=== PATIENT | male | born 1995 | race African-American/Black ===

== ENCOUNTER 2017-11-17 07:45 | Emergency (ER) | payer OTHER ==
[2017-11-17] MEDS ORDERED: Ketorolac INJ* 30 MG/ML 1 ML VIAL IV PUSH ONE (08:43)
[2017-11-17] MEDS ORDERED: NS 0.9% 1000 ML* 1,000 ML IV ONE (08:43)
[2017-11-17 09:03] LABS: ABS Basophils 0 10^3/ul (0-0.2); ABS Eosinophils 0 10^3/ul (0-0.6); ABS Lymphocytes 0.4 10^3/ul (1.0-4.8); ABS Monocytes 0.5 10^3/ul (0-0.8); ABS Neutrophils 2.9 10^3/ul (1.5-7.7); ABS Nucleated RBC 0 10^3/ul; Eosinophil % 0.1 % (0-6); Hematocrit 41 % (42-52); Hemoglobin 13.9 g/dl (14.0-18.0); Mean Corpuscular HGB Conc 34 g/dl (31-36); Mean Corpuscular Hemoglobin 30 pg (27-31); Mean Corpuscular Volume 89 fL (80-94); Mean Platelet Volume 7.3 um3 (7.4-10.4); Nucleated Red Blood Cells % 0.1; Platelet Count 147 10^3/ul (150-450); Red Cell Distribution Width 13 % (10.5-15); White Blood Count 3.8 10^3/ul (3.5-10.8)
[2017-11-17 09:42] LABS: EGFR Non-African American 89.2 (>60)
[2017-11-17 09:58] VITALS: BP 119/66
--- NOTE | 2017-11-17 10:47 | ED ---
Luis Manuel Schroeder Stephanie, scribed for Twin Garsia MD on 11/17/17 at 0851 . Abdominal Pain/Male - HPI Summary HPI Summary: The pt is a 22 y/o M presenting to the ED with c/o abd pain that began earlier today. Symptoms include nausea, chills, myalgia and fever (100 F). The pt denies D/V, dysuria, SOB, CP and cough. - History of Current Complaint Chief Complaint: EDAbdPain Stated Complaint: GENERAL Time Seen by Provider: 11/17/17 08:36 Hx Obtained From: Patient Onset/Duration: Gradual Onset, Lasting Hours, Still Present Timing: Constant Severity Currently: Moderate Pain Intensity: 5 Pain Scale Used: 0-10 Numeric Location: Diffuse Radiates: No Aggravating Factor(s): Nothing Alleviating Factor(s): Nothing Associated Signs And Symptoms: Positive: Fever, Nausea. Negative: Urinary Symptoms, Vomiting, Diarrhea - Allergies/Home Medications Allergies/Adverse Reactions: Allergies Allergy/AdvReac Type Severity Reaction Status Date / Time No Known Allergies Allergy Verified 11/17/17 07:54 Home Medications: Home Medications Ibuprofen TAB* [Advil TAB*] 400 mg PO Q8H PRN 11/17/17 [History Confirmed ] Magnesium Oxide TAB* [MagOx 400 TAB*] 500 mg PO DAILY 11/17/17 [History Confirmed 11/17/17] Multivitamins/Minerals TAB* [Theragran/minerals TAB*] 1 tab PO DAILY 11/17/17 [ History Confirmed 11/17/17] PMH/Surg Hx/FS Hx/Imm Hx Endocrine/Hematology History: Denies: Hx Diabetes, Hx Thyroid Disease Cardiovascular History: Denies: Hx Hypercholesterolemia, Hx Hypertension, Hx Pacemaker/ICD, Hx Peripheral Vascular Disease Respiratory History: Reports: Hx Asthma Denies: Hx Chronic Obstructive Pulmonary Disease (COPD) GI History: Denies: Hx Ulcer History: Denies: Hx Renal Disease Musculoskeletal History: Denies: Hx Arthritis, Hx Osteoporosis Sensory History: Denies: Hx Cataracts, Hx Contacts or Glasses, Hx Glaucoma, Hx Hearing Aid Opthamlomology History: Denies: Hx Cataracts, Hx Contacts or Glasses, Hx Glaucoma Neurological History: Denies: Hx Headaches, Hx Seizures, Hx Transient Ischemic Attacks (TIA) Psychiatric History: Denies: Hx Anxiety, Hx Depression, Hx Panic Disorder - Surgical History Surgery Procedure, Year, and Place: NONE Infectious Disease History: No Infectious Disease History: Denies: Hx Clostridium Difficile, Hx Hepatitis, Hx Human Immunodeficiency Virus (HIV), Hx of Known/Suspected MRSA, Hx Shingles, Hx Tuberculosis, Hx Known/ Suspected VRE, Hx Known/Suspected VRSA, History Other Infectious Disease, Traveled Outside the [place] in Last 30 Days - Family History Known Family History: Negative: Renal Disease - Social History Occupation: Student Lives: With Family Alcohol Use: Occasionally Hx Substance Use: No Substance Use Type: Reports: None Hx Tobacco Use: No Smoking Status (MU): Never Smoked Tobacco Have You Smoked in the Last Year: No Review of Systems Positive: Fever, Chills Negative: Chest Pain Negative: Shortness Of Breath, Cough Positive: Abdominal Pain, Nausea. Negative: Vomiting, Diarrhea Negative: dysuria Positive: Myalgia All Other Systems Reviewed And Are Negative: Yes Physical Exam - Summary Physical Exam Summary: Appearance: Well appearing, no pain distress Skin: warm, dry, reflects adequate perfusion Head/face: normal Eyes: EOMI, VALARIE ENT: normal Neck: supple, non-tender Respiratory: CTA, breath sounds present Cardiovascular: RRR, pulses symmetrical Abdomen: non-tender, soft, no RLQ pain, no rebound, no guarding, negative obturator sign, negative psoas sign Bowel Sounds: present Musculoskeletal: normal, strength/ROM intact Neuro: normal, sensory motor intact, A&Ox3 Triage Information Reviewed: Yes Vital Signs On Initial Exam: Initial Vitals Temp Pulse Resp BP Pulse Ox 99.3 F 76 16 129/59 98 11/17/17 07:55 11/17/17 07:55 11/17/17 07:55 11/17/17 07:55 11/17/17 07:55 Vital Signs Reviewed: Yes Diagnostics - Vital Signs Vital Signs Temp Pulse Resp BP Pulse Ox 11/17/17 08:04 59 131/74 98 11/17/17 08:03 65 98 11/17/17 07:55 99.3 F 76 16 129/59 98 - Laboratory Lab Results: Lab Results 11/17/17 11/17/17 11/17/17 Range/Units 08:50 08:59 09:10 WBC 3.8 (3.5-10.8) 10^3/ul RBC 4.60 (4.0-5.4) 10^6/ul Hgb 13.9 L (14.0-18.0) g/dl Hct 41 L (42-52) % MCV 89 (80-94) fL MCH 30 (27-31) pg MCHC 34 (31-36) g/dl RDW 13 (10.5-15) % Plt Count 147 L (150-450) 10^3/ul MPV 7.3 L (7.4-10.4) um3 Neut % (Auto) 75.9 (38-83) % Lymph % (Auto) 11.0 L (25-47) % Jenkins % (Auto) 12.7 H (0-7) % Eos % (Auto) 0.1 (0-6) % Baso % (Auto) 0.3 (0-2) % Absolute Neuts (auto) 2.9 (1.5-7.7) 10^3/ul Absolute Lymphs (auto) 0.4 L (1.0-4.8) 10^3/ul Absolute Monos (auto) 0.5 (0-0.8) 10^3/ul Absolute Eos (auto) 0 (0-0.6) 10^3/ul Absolute Basos (auto) 0 (0-0.2) 10^3/ul Absolute Nucleated RBC 0 10^3/ul Nucleated RBC % 0.1 Sodium 135 L (139-145) mmol/L Potassium 3.9 (3.5-5.0) mmol/L Chloride 105 (101-111) mmol/L Carbon Dioxide 26 (22-32) mmol/L Anion Gap 4 (2-11) mmol/L BUN 15 (6-24) mg/dL Creatinine 1.05 (0.67-1.17) mg/dL Est GFR ( Amer) 114.7 (>60) Est GFR (Non-Af Amer) 89.2 (>60) BUN/Creatinine Ratio 14.3 (8-20) Glucose 96 (70-100) mg/dL Calcium 8.8 (8.6-10.3) mg/dL Total Bilirubin 0.60 (0.2-1.0) mg/dL AST 22 (13-39) U/L ALT 20 (7-52) U/L Alkaline Phosphatase 82 (34-104) U/L C-Reactive Protein 16.85 H (< 5.00) mg/L Total Protein 6.4 (6.4-8.9) g/dL Albumin 3.8 (3.2-5.2) g/dL Globulin 2.6 (2-4) g/dL Albumin/Globulin Ratio 1.5 (1-3) Influenza A (Rapid) Negative (Negative) Influenza B (Rapid) Negative (Negative) Result Diagrams: 11/17/17 08:50 11/17/17 09:10 Lab Statement: Any lab studies that have been ordered have been reviewed, and results considered in the medical decision making process. Re-Evaluation - Re-Evaluation First Eval Re-Evaluation Time: 09:45 Change: Improved - The pt's cramping has resolved. States still no pain in the right lower quadrant. Abdominal Pain Fem Course/Dx - Course Course Of Treatment: Patient with abrupt onset of fever, body aches. No cough or significant congestion. Flu is negative. Also had some abdominal cramping. No diarrhea as of yet. No pain in the right lower quadrant. No peritoneal signs. Hydrated and given Toradol with complete relief. No urinary symptoms. Follow up with primary care physician. - Diagnoses Differential Diagnosis/HQI/PQRI: Appendicitis, Constipation, Pancreatitis, Renal Colic, Other - Viral syndrome Provider Diagnoses: Viral syndrome, Abdominal cramping Discharge - Sign-Out/Discharge Documenting (check all that apply): Discharge/Admit/Transfer - Discharge - Discharge Plan Condition: Good Disposition: HOME Patient Education Materials: Viral Syndrome (ED) Forms: *School Release Referrals: Amanda Garnica MD [Primary Care Provider] - [facility] - Samuel STERN [Medical Doctor] - Additional Instructions: Drink plenty of fluids, Gatorade G2 is best. [place] diet as tolerated. Return with persistent fever, new symptoms, pain in the right lower abdomen, worse or other concerns. Tylenol, ibuprofen as needed for fever or body aches. - Billing Disposition and Condition Condition: GOOD Disposition: HOME The documentation as recorded by the Luis Manuel bland Stephanie accurately reflects the service I personally performed and the decisions made by , Twin Garsia MD.
== END 2017-11-17 09:58 | disposition home or self-care (01) ==
LOC: ED 07:45
DX: B34.9 Viral infection, unspecified (principal); R10.84 Generalized abdominal pain; J45.909 Unspecified asthma, uncomplicated
CPT/HCPCS: 36415; 80053; 85025; 86140; 87502; 96374; 99282; J1885